=== PATIENT | female | born 1985 | race African-American/Black ===

== ENCOUNTER 2017-04-16 21:31 | Emergency (ER) | payer OTHER ==
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
[~2017-04-16 21:31] MED LIST: DEPO-PROVER150 MG/ML INJ; HYDROCODONE PO; NO MEDICATIONS
[2017-04-16] MEDS ORDERED: NO MEDICATIONS (21:49)
== END 2017-04-16 23:28 | disposition home or self-care (01) ==
LOC: SED 21:31
DX: S13.4XXA Sprain of ligaments of cervical spine, initial encounter (principal); S29.012A Strain of muscle and tendon of back wall of thorax, initial encounter; S39.012A Strain of muscle, fascia and tendon of lower back, initial encounter; V49.00XA Driver injured in collision with unspecified motor vehicles in nontraffic accident, initial encounter; Y92.410 Unspecified street and highway as the place of occurrence of the external cause
CPT/HCPCS: 72125; 99284